=== PATIENT | female | born 1970 | race Caucasian/White ===

== ENCOUNTER 2020-05-29 22:57 | Emergency (ER) | payer MEDICARE, OTHER ==
[~2020-05-29] VITALS: Ht 172.7 cm; Wt 86.2 kg
[2020-05-29] MEDS ORDERED: THIAMINE 100mg/ml INJ (200mg/2ml VIAL) IV ONE (23:30)
[2020-05-29] MEDS ORDERED: SODIUM CHLORIDE 0.9% 1,000 ML IV ONE ×2 (23:30)
[2020-05-30 00:46] LABS: Basophils # (auto) 0 10 ^3/uL (0-0.2); Basophils % (auto) 0.3 % (0.0-2.0); Eosinophils # (auto) 0.1 10 ^3/uL (0-0.8); Hemoglobin 14.8 g/dL (12.2-16.2); Lymphocytes # (auto) 2.4 10 ^3/uL (0.4-5.4); Lymphocytes % (auto) 27.8 % (10.0-50.0); Mean Corpuscular Hemoglobin 30.2 pg (28.0-32.0); Mean Corpuscular Volume 91.4 fL (80.0-100.0); Monocytes # (auto) 0.6 10 ^3/uL (0-1.3); Neutrophils # (auto) 5.6 10 ^3/uL (1.6-8.6); Neutrophils % (auto) 63.9 % (37.0-80.0); Platelet Count (auto) 255 10^3/uL (140-450); Red Blood Cells 4.92 10^6/uL (4.0-5.20); White Blood Cell 8.8 10^3/uL (4.4-10.8)
[2020-05-30] MEDS ORDERED: MORPHINE SULFATE 4 MG/ML SYR/VIAL IV ONE (01:00)
[2020-05-30] MEDS ORDERED: ONDANSETRON HCL 4 MG/2 ML VIAL IV ONE (01:00)
[2020-05-30 01:07] LABS: Alanine Aminotransferase 8 U/L (13-56); Albumin 3.5 g/dL (3.4-5.0); Anion Gap 5 (5-15); BUN/Creatinine Ratio 10.3; Blood Alcohol < 3.0 mg/dL (0-5); Blood Urea Nitrogen 12 mg/dL (7-18); Calcium 8.9 mg/dL (8.5-10.1); Carbon Dioxide 29 mmol/L (21-32); Chloride 109 mmol/L (98-107); GFR African American 64 mL/min; GFR Non-African American 53 mL/min; Glucose 84 mg/dL (74-106); INR 0.94 (0.9-1.15); Partial Thromboplastin Time 26.2 sec (23.0-31.2); Potassium 4.1 mmol/L (3.5-5.1); Sodium 143 mmol/L (136-145)
[2020-05-30 01:12] LABS: Alkaline Phosphatase 88 U/L (45-117); Aspartate Aminotransferase 16 U/L (15-37); Bilirubin, Total 0.3 mg/dL (0.2-1.0); Total Protein 7.3 g/dL (6.4-8.2)
[2020-05-30 01:53] LABS: Urine Bacteria FEW /hpf (None Seen); Urine Blood Negative /uL (Negative); Urine Specific Gravity 1.011 (1.001-1.035); Urine WBC 5 /hpf (0 - 5)
[2020-05-30 02:13] LABS: Lactate Dehydrogenase 186 U/L (84-246)
[2020-05-30] MEDS ORDERED: IOHEXOL 350 MG/ML 100ML IJ ONE (02:13)
[2020-05-30] MEDS ORDERED: HYDROcodone-ACET 5/325MG TAB PO ONE (03:30)
[2020-05-30 03:50] VITALS: BP 137/94
== END 2020-05-30 07:31 | disposition home or self-care (01) ==
LOC: EDBD 22:57 → ER 22:57
DX: L03.114 Cellulitis of left upper limb (principal); S51.832A Puncture wound without foreign body of left forearm, initial encounter; Z20.828 Contact with and (suspected) exposure to other viral communicable diseases; X58.XXXA Exposure to other specified factors, initial encounter; Y93.89 Activity, other specified; Y92.89 Other specified places as the place of occurrence of the external cause; Y99.8 Other external cause status
CPT/HCPCS: 36415; 71045; 71275; 80053; 80320; 81001; 82728; 83605; 83615; 83880; 84484; 85025; 85379; 85610; 85730; 87426; 96361; 96374; 96375; 99285; J2270; J2405; J3411; J7030; Q9967; U0003

== ENCOUNTER → 2021-09-13 | Emergency (ER) | payer MEDICARE, OTHER ==
[~2021-09-13] VITALS: Ht 167.6 cm; Wt 90.7 kg
[2021-09-13 20:45] VITALS: BP 112/77
[2021-09-13 23:45] LABS: Basophils # (auto) 0.2 10 ^3/uL (0-0.2); Basophils % (auto) 1.7 % (0.0-2.0); Eosinophils # (auto) 0 10 ^3/uL (0-0.8); Eosinophils % (auto) 0.3 % (0.0-7.0); Hematocrit 48.5 % (36.0-46.0); Hemoglobin 15.8 g/dL (12.2-16.2); Lymphocytes % (auto) 18.4 % (10.0-50.0); Mean Corpuscular Hemoglobin 28.9 pg (28.0-32.0); Mean Corpuscular Hgb Conc. 32.7 g/dL (32.0-36.0); Mean Corpuscular Volume 88.4 fL (80.0-100.0); Monocytes # (auto) 0.6 10 ^3/uL (0-1.3); Monocytes % (auto) 5.2 % (0.0-12.0); Neutrophils # (auto) 8.2 10 ^3/uL (1.6-8.6); Neutrophils % (auto) 74.4 % (37.0-80.0); Nucleated Red Blood Cells % 0.2 %; Red Blood Cells 5.48 10^6/uL (4.0-5.20); Red Cell Distribution Width 13.8 % (11.8-14.3)
[2021-09-13 23:47] LABS: Alanine Aminotransferase 43 U/L (13-56); Albumin 3.6 g/dL (3.4-5.0); Anion Gap 11 (5-15); Aspartate Aminotransferase 50 U/L (15-37); BUN/Creatinine Ratio 10.4; Blood Urea Nitrogen 10 mg/dL (7-18); Calcium 8.2 mg/dL (8.5-10.1); Carbon Dioxide 19 mmol/L (21-32); Chloride 115 mmol/L (98-107); GFR African American 80 mL/min; GFR Non-African American 66 mL/min; Glucose 115 mg/dL (74-106); Potassium 3.5 mmol/L (3.5-5.1); Sodium 145 mmol/L (136-145)
[2021-09-13 23:50] LABS: Alkaline Phosphatase 94 U/L (45-117); Bilirubin, Total 0.2 mg/dL (0.2-1.0)
[2021-09-14 02:48] LABS: Urine Bacteria FEW /hpf (None Seen); Urine Blood Negative /uL (Negative); Urine Mucus FEW (None Seen); Urine Specific Gravity 1.007 (1.001-1.035); Urine Sperm PRESENT /hpf (None Seen); Urine WBC 3 /hpf (0 - 5)
[2021-09-14 02:51] LABS: Amphetamine Screen, Urine NEGATIVE (NEGATIVE); Barbiturate Scree,Urine NEGATIVE (NEGATIVE); Benzodiazephine Screen, Urine NEGATIVE (NEGATIVE); Cannabinoid Screen, Urine NEGATIVE (NEGATIVE); Cocaine Screen, Urine POSITIVE (NEGATIVE); Phencyclidine Screen, Urine NEGATIVE (NEGATIVE)
[2021-09-14 02:59] LABS: Opiate Scree,Urine NEGATIVE (NEGATIVE)
== END | disposition home or self-care (01) ==
LOC: EDBD 20:45 → ER 20:45 → EDUNIT# 20:45
DX: R41.82 Altered mental status, unspecified (principal); Z88.8 Allergy status to other drugs, medicaments and biological substances
CPT/HCPCS: 36415; 70450; 80053; 80307; 80320; 81001; 82140; 83735; 84443; 85025